=== PATIENT | female | born 2000 | race Caucasian/White ===

== ENCOUNTER → 2019-08-10 11:30 | Outpatient (BNVA) | payer MEDICAID, SELFPAY | PROVIDERS: Family Provider Electrodiagnostic Medicine; PCP Electrodiagnostic Medicine; Visit Provider Nurse Practitioner Women's Health | DX: Z11.3 Encounter for screening for infections with a predominantly sexual mode of transmission (principal); R30.0 Dysuria | CPT/HCPCS: 80053; 81000; 86592; 86803; 87340; 87491; 87591; 87661; 87806; 88175 ==